=== PATIENT | female | born 1940 | race Caucasian/White ===

== ENCOUNTER 2018-09-21 07:59 | Day surgery (SDC) | payer MEDICARE, OTHER ==
[~2018-09-21 07:59] MED LIST: Lactated Ringers 1,000 ML IV SCH; Lidocaine 1% 2 ML ONE; Lidocaine 1%/Sod Bicarbonate in NS 8.4% 1 ML Syringe IDERM PRN; Midazolam 1 MG/ML 2 ML SDV ONE; Propofol 200 MG/20 ML SDV ONE; Rocuronium 50 MG/5 ML Vial ONE; Sodium Chloride 0.9% 10 ML Syringe FLUSH PRN; fentaNYL 100 MCG/2 ML SDV ONE
[2018-09-21] MEDS ORDERED: Lidocaine 1% with EPINEPHrine 1:100,000 20 ML MDV ONE (08:05)
[2018-09-21] MEDS ORDERED: Sodium Chloride 0.9% 50 ML SDV ONE (08:05)
--- NOTE | 2018-09-21 09:47 | PCM.PREANE ---
Preanesthetic Assessment - Procedure Proposed Procedure: anterior and posterior vaginal repair with perineoplasty - Anesthesia/Transfusion/Family Hx Anesthesia History: Prior Anesthesia Without Reaction Family History of Anesthesia Reaction: No Transfusion History: No Prior Transfusion(s) - Review of Systems General: No Symptoms Pulmonary: No Symptoms Cardiovascular: No Symptoms Gastrointestinal: Abdominal Pain (related to surgery as why we are here) Neurological: No Symptoms Other: Reports: Neck Pain (broke neck in 2003-had to get screws in neck ) - Physical Assessment NPO Status Date: 09/20/18 NPO Status Time: 21:00 O2 Sat by Pulse Oximetry: 95 Respiratory Rate: 16 Vital Signs: Last Vital Signs Temp 98.6 F 09/21/18 08:10 Pulse 66 09/21/18 09:36 Resp 16 09/21/18 09:36 BP 155/84 H 09/21/18 09:36 Pulse Ox 95 09/21/18 09:36 Height: 5 ft 6 in Weight: 80.739 kg ASA Class: 2 Mental Status: Alert & Oriented x3 Airway Class: Mallampati = 1 Dentition: Reports: Dentures (top ), Partial (partial) Thyro-Mental Finger Breadths: 3 Mouth Opening Finger Breadths: 3 ROM/Head Extension: Limited/Partial (due to screws in neck from fracture repair) Lungs: Clear to Auscultation, Normal Respiratory Effort Cardiovascular: Regular Rate, Regular Rhythm - Allergies Allergies/Adverse Reactions: Allergies Allergy/AdvReac Type Severity Reaction Status Date / Time Penicillins Allergy Swelling Verified 09/21/18 09:48 - Blood Blood Available: No - Acknowledgements Anesthesia Type Planned: General Anesthesia Pt an Appropriate Candidate for the Planned Anesthesia: Yes Alternatives and Risks of Anesthesia Discussed w Pt/Guardian: Yes Pt/Guardian Understands and Agrees with Anesthesia Plan: Yes PreAnesthesia Questionnaire HEENT History: Reports: Allergic Rhinitis, Impaired Vision, Macular Degeneration , Other (See Below) Other HEENT History: wears glasses, has dentures, nasal congestion Cardiovascular History: Reports: None Respiratory History: Reports: Other (See Below) Other Respiratory History: cough, URI Gastrointestinal History: Reports: GERD Genitourinary History: Reports: None MICROFILM PROCESSOR History: Reports: Other (See Below) Other OB/BYN History: UTI, cystocele, incontinence, suprapubic pain, vaginal prolpase Musculoskeletal History: Reports: Other (See Below) Other Musculoskeletal History: left leg pain, left ankle pain, neck pain, left ankle arthritis- shoulder arthritis Endocrine/Metabolic History: Reports: None Hematologic History: Reports: None Immunologic History: Reports: None Oncologic (Cancer) History: Reports: None Dermatologic History: Reports: Other (See Below) Other Dermatologic History: actinic keratosis, skin cancer, onchomycosis, tinea corposis - Past Surgical History HEENT Surgical History: Reports: Cataract Surgery, Tonsillectomy Cardiovascular Surgical History: Reports: None Respiratory Surgical History: Reports: None GI Surgical History: Reports: Colonoscopy, EGD Female Surgical History: Reports: None Male Surgical History: Reports: None Endocrine Surgical History: Reports: None Neurological Surgical History: Reports: C-Spine, Other (See Below) (foot surgery screws) Other Neurological Surgeries/Procedures: c-spine fracture with repair and hardware Musculoskeletal Surgical History: Reports: Knee Replacement, Other (See Below) Other Musculoskeletal Surgeries/Procedures:: neck surgery, ORIF radial neck Oncologic Surgical History: Reports: None - SUBSTANCE USE Smoking Status *Q: Never Smoker Tobacco Use Within Last Twelve Months: No Second Hand Smoke Exposure: No Days Per Week of Alcohol Use: 1 (rare) Recreational Drug Use History: No - HOME MEDS Home Medications: Home Meds Cholecalciferol (Vitamin D3) [Vitamin D3] 1,000 unit PO DAILY 09/20/18 [History] Multivitamin [Daily Multiple Vitamin] 1 tab PO DAILY 09/20/18 [History] Omeprazole 40 mg PO BID 09/20/18 [History] Vit A/Vit C/Vit E/Zinc/Copper [Preservision Areds Softgel] 2 tab PO DAILY [History] - CURRENT (IN HOUSE) MEDS Current Meds: Current Medications Lactated Ringer's (Ringers, Lactated) 1,000 mls @ 125 mls/hr IV ASDIRECTED EVANGELINA Stop: 09/21/18 23:00 Last Admin: 09/21/18 08:25 Dose: 125 mls/hr Lidocaine/Sodium Bicarbonate (Buffered Lidocaine 1% In Ns 8.4%) 0.25 ml IDERM ONETIME PRN PRN Reason: Prior to IV Start Stop: 09/21/18 18:00 Last Admin: 09/21/18 08:25 Dose: 0.25 ml Sodium Chloride (Saline Flush) 10 ml FLUSH ASDIRECTED PRN PRN Reason: Keep Vein Open Stop: 09/21/18 18:00 Discontinued Medications Fentanyl (Sublimaze) Confirm Administered Dose 100 mcg .ROUTE .STK-MED ONE Stop: 09/21/18 07:25 Lidocaine HCl (Xylocaine-Mpf 1%) Confirm Administered Dose 2 mls @ as directed .ROUTE .STK-MED ONE Stop: 09/21/18 07:22 Lidocaine HCl (Xylocaine-Mpf 1%) Confirm Administered Dose 2 mls @ as directed .ROUTE .STK-MED ONE Stop: 09/21/18 07:22 Lidocaine/Epinephrine (Xylocaine 1% With Epinephrine 1:100,000) Confirm Administered Dose 20 ml .ROUTE .STK-MED ONE Stop: 09/21/18 08:06 Midazolam HCl (Versed 1 Mg/Ml) Confirm Administered Dose 2 mg .ROUTE .STK-MED ONE Stop: 09/21/18 07:24 Propofol (Diprivan 20 Ml) Confirm Administered Dose 200 mg .ROUTE .STK-MED ONE Stop: 09/21/18 07:22 Rocuronium Husser (Zemuron) Confirm Administered Dose 50 mg .ROUTE .STK-MED ONE Stop: 09/21/18 07:26 Sodium Chloride (Normal Saline) Confirm Administered Dose 50 ml .ROUTE .STK-MED ONE Stop: 09/21/18 08:06
[2018-09-21] MEDS ORDERED: Propofol 200 MG/20 ML SDV ONE (12:01)
[2018-09-21] MEDS ORDERED: Ondansetron 4 MG/2 ML SDV ONE (12:21)
[2018-09-21] MEDS ORDERED: Ketorolac 30 MG/ML SDV ONE (12:22)
[2018-09-21] MEDS ORDERED: Acetaminophen/oxyCODONE 325-5 MG Tab PO PRN (12:37)
[2018-09-21] MEDS ORDERED: Ondansetron 4 MG/2 ML SDV IVPUSH PRN (12:37)
--- NOTE | 2018-09-21 12:41 | PCM48HPAN ---
Post Anesthesia Note - EVALUATION WITHIN 48HRS OF ANESTHETIC Vital Signs in Normal Range: Yes Patient Participated in Evaluation: Yes Respiratory Function Stable: Yes Airway Patent: Yes Cardiovascular Function Stable: Yes Hydration Status Stable: Yes Pain Control Satisfactory: Yes Nausea and Vomiting Control Satisfactory: Yes Mental Status Recovered: Yes Pulse Rate: 65 SaO2: 96 Resp Rate: 16 Blood Pressure: 122/79
--- NOTE | 2018-09-21 12:43 | PCM.OPNOTE ---
- General Post-Op/Procedure Note Date of Surgery/Procedure: 09/21/18 Operative Procedure(s): Anterior and posterior vaginal repair with perineoplasty Findings: Patient had a grade 1 uterine descensus, grade 3 cystocele and a grade 4 rectocele. Patient also had a gaping introitus allowing 4 fingerbreadths evaluation and had atrophic-appearing vulvar epithelium. Uterus is small. No adnexal abnormalities were noted on bimanual exam. Pre Op Diagnosis: 1. Grade 4 rectocele. 2. Grade 3 cystocele. 3. Atrophic vulvar and vaginal epithelium. 4. Grade 1 uterine descensus Post-Op Diagnosis: Same Anesthesia Technique: MAC Other Anesthesia Type: Lidocaine quarter percent with [id number] mL total Primary Surgeon: Marcus Suazo Secondary Surgeon: Andre Dominguez Anesthesia Provider: Elizabeth Mcbride Marketing Communications Manager: Cherise Waggoner Reason Marketing Communications Manager Was Necessary: Retraction, assistance, patient safety, quality of care. Fluid Replacement, Intraop: 800 EBL in mLs: 25 Complications: None Condition: Good Free Text/Narrative:: Surgery duration: 43 minutes Procedure: The patient is taken to the operating room and placed in a supine position on the operating table. She received 2 g of Ancef preoperatively for infection prophylaxis. She had sequential compression stockings in place for DVT prophylaxis. Patient was administered MAC. She was placed in a dorsal lithotomy position and prepped and draped in the usual fashion. Anterior vaginal repair was performed. Patient had emptied her bladder production assistant to the OR. Weighted speculum was placed in the vagina and the uppermost portion of the cystocele was identified. Two Allis clamps was placed at that uppermost point at a position approximately 1-1/2 cm lateral to the midline A second Allis clamp was placed approximately 2 cm from the urethral meatus. The areas and infiltrated with lidocaine quarter percent with epinephrine. Approximately 8 mL was used. The 2 lateral Allis clamps were retracted and an epithelial incision was made between the 2 clamps. A midline incision was then made with a Metzenbaum scissors. The overlying epithelium was then dissected off of the underlying vesicovaginal fascia. This all to lateral which when approximately midline was felt to be adequate to reduce the cystocele. When this was done approximately 4 trapezoidal shaped sutures of 0 Monocryl were then placed reapproximating the lateral supportive tissue midline and reducing the rectocele. At this point the excess epithelium bilaterally was removed and the epithelium was closed in a running fashion with 3-0 Monocryl. Rectocele was then performed. The uppermost portion of the rectocele was identified and was grasped midline with an Allis clamp. The introital area was grasped at approximately the 4:00 and 8:00 positions at the junction of the vaginal and vulvar epithelium. The area of epithelium was then infiltrated with lidocaine quarter percent with epinephrine. A johnathan-shaped piece of epithelium was removed from the posterior introital and perineal area. The vaginal epithelium was then undermined superiorly to the top of the rectocele. Was then incised midline. With sharp and blunt dissection the epithelium was then dissected off of the underlying vesicovaginal fascia. At this point approximately 8 sutures of 0 Monocryl were placed to reapproximate the lateral supportive tissue midline and reduce the rectocele. The excess epithelium was then excised and the epithelium overlying the rectocele repair was then reapproximated with a running suture of 3-0 Monocryl. Perineoplasty was then performed with approximately 4 V-shaped stitches of 0 Monocryl in placed to reapproximate the lateral tissue midline, rebuild the perineum about 1 cm and the vagina approximately 1 cm. The epithelium of the introitus and perineal body was then reapproximated using 3-0 Monocryl in an episiotomy repair fashion. At this time sponge, instrument and needle counts were correct. The patient was returned to supine position and was discharged from the operating room in good condition.
[2018-09-21] MEDS ORDERED: Ketorolac 30 MG/ML SDV IVPUSH SCH (12:45)
[2018-09-21] MEDS ORDERED: Ibuprofen 600 MG Tab PO PRN (18:30)
== END 2018-09-21 14:02 | disposition home or self-care (01) ==
LOC: JD.SDS 07:59
PROVIDERS: ATTEND Obstetrics & Gynecology
DX: N81.6 Rectocele (principal); N81.2 Incomplete uterovaginal prolapse; N90.5 Atrophy of vulva; N95.2 Postmenopausal atrophic vaginitis; I25.2 Old myocardial infarction; K21.9 Gastro-esophageal reflux disease without esophagitis; E87.6 Hypokalemia; M19.90 Unspecified osteoarthritis, unspecified site; Z88.0 Allergy status to penicillin; Z79.899 Other long term (current) drug therapy; Z98.890 Other specified postprocedural states
CPT/HCPCS: 56810; J1885; J2001; J2250; J2405; J2704; J3010; J7120; 00942

== ENCOUNTER 2021-10-04 11:31 | Inpatient (IN) | payer MEDICARE, OTHER ==
[2021-10-04] MEDS ORDERED: Sodium Chloride 0.9% 10 ML Syringe FLUSH PRN (14:32)
[2021-10-04] MEDS ORDERED: Sodium Chloride 0.9% 1,000 ML IV SCH (14:45)
[2021-10-04 15:54] LABS: ESTIMATED GFR 87 mL/min (>60)
[2021-10-04] MEDS ORDERED: Potassium Chloride 20 MEQ Tab.ER PO ONE (16:19)
[2021-10-04] MEDS ORDERED: Lactated Ringers 1,000 ML IV SCH (16:30)
[2021-10-04] MEDS: Potassium Chloride 10 MEQ in Premix Bag 1 BAG IV SCH ×4 (16:36→20:40)
[2021-10-04] MEDS ORDERED: Levofloxacin/Dextrose 5%-Water 500 MG in Premix Bag 1 BAG IV SCH (17:00)
[2021-10-04 17:45] LABS: CORONAVIRUS COVID-19 NAA NEGATIVE (NEGATIVE)
[2021-10-04] MEDS: Sodium Chloride 0.9% 1,000 ML IV SCH (19:06)
[2021-10-04] MEDS: Pantoprazole 40 MG Vial ONE (19:08)
[2021-10-04] MEDS ORDERED: Levofloxacin/Dextrose 5%-Water 100 ML IV ONE (19:18)
[2021-10-04] MEDS: Levofloxacin/Dextrose 5%-Water 500 MG in Premix Bag 1 BAG IV SCH (19:47)
[2021-10-04] MEDS: LORazepam 0.5 MG Tab PO SCH (20:38)
[2021-10-04] MEDS ORDERED: Haloperidol Lactate 5 MG/ML SDV IVPUSH ONE (22:35)
[2021-10-05] MEDS: Sodium Chloride 0.9% 1,000 ML IV SCH ×4 (03:57→22:11)
[2021-10-05 06:27] LABS: ESTIMATED GFR 91 mL/min (>60)
[2021-10-05] MEDS: LORazepam 0.5 MG Tab PO SCH ×3 (09:15→22:07)
[2021-10-05] MEDS ORDERED: Potassium Chloride 20 MEQ Tab.ER PO ONE (10:18)
[2021-10-05] MEDS: Potassium Chloride 10 MEQ in Premix Bag 1 BAG IV SCH ×4 (10:37→14:16)
[2021-10-05] MEDS ORDERED: Potassium Chloride 10 MEQ in Premix Bag 1 BAG IV SCH (13:15)
[2021-10-05] MEDS: risperiDONE 0.5 MG Tab PO SCH (20:09)
[2021-10-05] MEDS: Levofloxacin/Dextrose 5%-Water 500 MG in Premix Bag 1 BAG IV SCH (20:14)
[2021-10-05] MEDS ORDERED: Non-Formulary Medication 1 Each PO SCH (21:00)
[2021-10-05] MEDS ORDERED: FERROUS SULFATE 325 MG PO SCH (21:00)
[2021-10-05] MEDS: VITAMIN D3 2000 UNIT PO SCH (22:07)
[2021-10-05] MEDS: AREDS FORMULA PO SCH (22:08)
[2021-10-06 05:58] LABS: ESTIMATED GFR 91 mL/min (>60)
[2021-10-06] MEDS ORDERED: Non-Formulary Medication 1 Each PO SCH (09:00)
[2021-10-06] MEDS: LORazepam 0.5 MG Tab PO SCH (09:09)
[2021-10-06] MEDS: risperiDONE 0.5 MG Tab PO SCH ×2 (09:09→20:07)
[2021-10-06] MEDS: Potassium Chloride 20 MEQ Tab.ER PO SCH ×3 (11:40→20:11)
[2021-10-06] MEDS ORDERED: Sodium Chloride 0.9% 250 ML IV SCH (14:45)
[2021-10-06] MEDS: LORazepam 0.5 MG Tab PO PRN ×2 (14:52→20:14)
[2021-10-06] MEDS: Donepezil 10 MG Tab PO SCH (20:10)
[2021-10-06] MEDS: AREDS FORMULA PO SCH (20:17)
[2021-10-06] MEDS: VITAMIN D3 2000 UNIT PO SCH (20:18)
[2021-10-06] MEDS: Sodium Chloride 0.9% 1,000 ML IV SCH (20:27)
[2021-10-06] MEDS: Levofloxacin/Dextrose 5%-Water 500 MG in Premix Bag 1 BAG IV SCH (20:34)
[2021-10-06] MEDS ORDERED: risperiDONE 0.5 MG Tab PO ONE (23:49)
[2021-10-07 07:27] LABS: ESTIMATED GFR 95 mL/min (>60)
[2021-10-07] MEDS: Sulfamethoxazole/Trimethoprim 800-160 MG Tab PO SCH ×2 (09:30→20:48)
[2021-10-07] MEDS: LORazepam 0.5 MG Tab PO PRN (09:31)
[2021-10-07] MEDS: Potassium Chloride 20 MEQ Tab.ER PO SCH ×3 (09:31→20:48)
[2021-10-07] MEDS ORDERED: Aluminum Hydroxide/Magnesium Hydroxide/Simethicone Susp 30 ML Cup PO PRN (10:30)
[2021-10-07] MEDS: Pantoprazole 40 MG Tab.CR PO SCH (16:24)
[2021-10-07] MEDS: risperiDONE 0.5 MG Tab PO SCH (20:48)
[2021-10-07] MEDS: Donepezil 10 MG Tab PO SCH (20:48)
[2021-10-07] MEDS: VITAMIN D3 2000 UNIT PO SCH (20:48)
[2021-10-07] MEDS: AREDS FORMULA PO SCH (20:48)
[2021-10-08] MEDS: Sulfamethoxazole/Trimethoprim 800-160 MG Tab PO SCH (08:18)
[2021-10-08] MEDS: Potassium Chloride 20 MEQ Tab.ER PO SCH (08:18)
[2021-10-08] MEDS: Pantoprazole 40 MG Tab.CR PO SCH (08:18)
== END 2021-10-08 11:53 | DRG 690 ==
LOC: JD.ED 11:31 → JD.ICU 16:38
PROVIDERS: ADMIT Pediatrics; ATTEND Internal Medicine
PROC: 30233N1 Transfusion of Nonautologous Red Blood Cells into Peripheral Vein, Percutaneous Approach (ICD-10-PCS; principal; 2021-10-06)
DX: N30.01 Acute cystitis with hematuria (principal); F03.91 Unspecified dementia, unspecified severity, with behavioral disturbance; R32 Unspecified urinary incontinence; M19.90 Unspecified osteoarthritis, unspecified site; Z85.828 Personal history of other malignant neoplasm of skin; Z88.0 Allergy status to penicillin; E87.6 Hypokalemia; K21.9 Gastro-esophageal reflux disease without esophagitis; Z20.822 Contact with and (suspected) exposure to COVID-19; D50.9 Iron deficiency anemia, unspecified; Z66 Do not resuscitate; R62.7 Adult failure to thrive; S00.83XA Contusion of other part of head, initial encounter; Z79.899 Other long term (current) drug therapy; Z79.52 Long term (current) use of systemic steroids; Z68.25 Body mass index [BMI] 25.0-25.9, adult; Z97.3 Presence of spectacles and contact lenses; Z97.2 Presence of dental prosthetic device (complete) (partial); Z87.440 Personal history of urinary (tract) infections; Z90.89 Acquired absence of other organs; Z98.42 Cataract extraction status, left eye; Z98.41 Cataract extraction status, right eye; Z98.890 Other specified postprocedural states; Z91.81 History of falling; W18.30XA Fall on same level, unspecified, initial encounter; Y92.89 Other specified places as the place of occurrence of the external cause
CPT/HCPCS: 0241U; 36415; 36430; 70450; 71045; 74177; 80048; 80053; 81001; 82607; 82746; 83540; 83605; 83690; 83735; 84443; 84484; 85025; 85027; 86140; 86850; 86900; 86901; 86922; 87040; 87086; 87088; 87186; 93005; 97116; 97162; 97530; 93010; 99284; A9270-GY; C9113; J1630; J1956; J2916; J3480; J3490; J7030; J7120; P9016; U0002

== ENCOUNTER 2024-03-29 17:55 | Inpatient (IN) | payer MEDICARE, OTHER ==
[2024-03-29] MEDS: Iopamidol 612 MG/ML 100 ML Bottle IVPUSH ONE (18:45)
[2024-03-29 18:57] LABS: BASOPHILS PERCENT AUTO 0.5 % (0.0-1.0); EOSINOPHILS ABSOLUTE AUTO 0.1 K/mm3 (0.0-0.4); HEMATOCRIT 40.2 % (37.0-47.0); HEMOGLOBIN 13.3 gm/dl (12.0-16.0); IMMATURE GRAN ABSOLUTE AUTO 0.04 K/mm3 (0.00-0.05); IMMATURE GRAN PERCENT AUTO 0.5 % (0.0-0.4); LYMPHOCYTES ABSOLUTE AUTO 1.2 K/mm3 (1.0-4.8); LYMPHOCYTES PERCENT AUTO 13.2 % (24.0-44.0); MEAN CORPUSCULAR HEMOGLOBIN 33.1 pg (28.0-32.0); MEAN CORPUSCULAR HGB CONC 33.1 g/dl (32.0-36.0); MEAN PLATELET VOLUME 9.3 fl (9.4-12.3); MONOCYTES ABSOLUTE AUTO 0.6 K/mm3 (0.0-0.8); MONOCYTES PERCENT AUTO 7.3 % (0.0-8.0); NEUTROPHILS ABSOLUTE AUTO 6.8 K/mm3 (1.8-7.7); NEUTROPHILS PERCENT AUTO 77.5 % (41.0-71.0); PLATELET COUNT,PLT 217 K/mm3 (150-400); RED BLOOD CELL COUNT 4.02 M/mm3 (4.10-5.30); WHITE BLOOD CELL COUNT,WBC 8.79 K/mm3 (3.9-11.3)
[2024-03-29 19:23] LABS: ALBUMIN 3.2 g/dl (3.4-5.0); ANION GAP 12.9 (5-15); BILIRUBIN TOTAL 1.2 mg/dL (0.2-1.0); BUN/CREATININE RATIO 18.8 (14-18); CALCIUM 8.4 mg/dL (8.5-10.1); CREATININE 0.8 mg/dL (0.55-1.02); EST CRCL DRUG DOSING (CG) 46.82 mL/min; MAGNESIUM 1.9 mg/dL (1.8-2.4); POTASSIUM,K 3.9 mEq/L (3.5-5.1); PROTEIN TOTAL,TP 6.4 g/dl (6.4-8.2)
[2024-03-29] MEDS: Lidocaine 1% 10 ML MDV INJECT ONE (20:13)
[2024-03-29] MEDS: fentaNYL 100 MCG/2 ML SDV IVPUSH ONE (20:13)
[2024-03-29] MEDS ORDERED: Acetaminophen/HYDROcodone 325-5 MG Tab PO PRN (20:22)
[2024-03-29] MEDS ORDERED: fentaNYL 100 MCG/2 ML SDV IVPUSH PRN (20:26)
[2024-03-30] MEDS: Acetaminophen 325 MG Tab PO SCH ×2 (00:44→09:41)
[2024-03-30] MEDS ORDERED: Morphine 2 MG/ML SYRINGE IVPUSH PRN (07:28)
[2024-03-30] MEDS: Enoxaparin 40 MG/0.4 ML Syringe SUBCUT SCH (17:03)
[2024-03-30] MEDS ORDERED: Ondansetron 4 MG Tab.DIS PO PRN (18:17)
[2024-03-30] MEDS: risperiDONE 0.5 MG Tab PO SCH (22:18)
[2024-03-31] MEDS: Polyethylene Glycol 3350 Powder 17 GM Packet PO SCH (10:01)
[2024-03-31] MEDS: Cholecalciferol (Vitamin D3) 25 MCG Tab PO SCH (10:05)
[2024-03-31] MEDS: oxyCODONE 5 MG Tab PO PRN (13:00)
[2024-03-31 13:24] LABS: APPEARANCE,URINE TURBID (Clear); BILIRUBIN,URINE NEGATIVE (Negative); COLOR,URINE YELLOW (Yellow); GLUCOSE,URINE NEGATIVE (Negative); KETONES,URINE NEGATIVE (Negative); LEUKOCYTE ESTERASE,URINE 1+ (Negative); NITRITE,URINE NEGATIVE (Negative); OCCULT BLOOD,URINE 1+ (Negative); PROTEIN,URINE 1+ (Negative); UROBILINOGEN,URINE 0.2 (0.2-1.0)
[2024-03-31] MEDS: Nitrofurantoin Monohydrate/Macrocrystalline 100 MG Cap PO ONE (14:17)
[2024-03-31 19:28] LABS: BACTERIA,URINE MANY /hpf (FEW); MUCUS,URINE FEW /hpf (FEW); RBC,URINE 0-5 /hpf (0-5); SQUAMOUS EPITHELIAL CELLS,UR 0-5 /hpf (0-5); WBC,URINE 20-30 /hpf (0-5)
[2024-03-31] MEDS ORDERED: Donepezil 10 MG Tab PO SCH (21:00)
[2024-04-01] MEDS ORDERED: Pantoprazole 40 MG Tab.CR PO SCH (09:00)
== END 2024-03-31 15:32 | DRG 536 ==
LOC: JD.ED 17:55 → JD.MS 20:16
PROVIDERS: ADMIT Family Medicine; ATTEND Family Medicine
DX: S72.002A Fracture of unspecified part of neck of left femur, initial encounter for closed fracture (principal); F03.94 Unspecified dementia, unspecified severity, with anxiety; F03.918 Unspecified dementia, unspecified severity, with other behavioral disturbance; N39.0 Urinary tract infection, site not specified; W20.8XXA Other cause of strike by thrown, projected or falling object, initial encounter; H54.7 Unspecified visual loss; K21.9 Gastro-esophageal reflux disease without esophagitis; M19.072 Primary osteoarthritis, left ankle and foot; M19.019 Primary osteoarthritis, unspecified shoulder; Z96.659 Presence of unspecified artificial knee joint; Z66 Do not resuscitate; M81.0 Age-related osteoporosis without current pathological fracture; Z85.828 Personal history of other malignant neoplasm of skin; Y93.89 Activity, other specified; Y92.89 Other specified places as the place of occurrence of the external cause; Z79.899 Other long term (current) drug therapy; Z98.890 Other specified postprocedural states; Z98.49 Cataract extraction status, unspecified eye; Z90.89 Acquired absence of other organs
CPT/HCPCS: 36415; 70450; 71260; 72125; 74177; 80053; 83735; 85025; J3010; Q9967; 51701; 81001; 87086; 87641; 99222; 99239; A9270-GY; C1758; J3490

== ENCOUNTER 2024-10-28 13:06 | Inpatient (IN) | payer MEDICARE, OTHER ==
[2024-10-28] MEDS ORDERED: Sodium Chloride 0.9% 10 ML Syringe FLUSH PRN (13:12)
[2024-10-28 13:36] LABS: PCO2 ARTERIAL 31.0 mmHg (35.0-45.0); PO2 ARTERIAL 62.0 mmHg (80.0-100.0)
[2024-10-28 13:36] LABS: MEAN PLATELET VOLUME 10.4 fl (9.4-12.3); NRBC ABSOLUTE 0.73 (0.00-0.02); NRBC PERCENT 3.6 % (0.0-0.2); PLATELET COUNT,PLT 287 K/mm3 (150-400); RED BLOOD CELL COUNT 2.74 M/mm3 (4.10-5.30); WHITE BLOOD CELL COUNT,WBC 20.36 K/mm3 (3.9-11.3)
[2024-10-28 13:37] LABS: BASE EXCESS ARTERIAL 1.3 (-2-2.0); BICARBONATE,ARTERIAL 24.2 meq/L (22.0-26.0); O2 SATURATION ARTERIAL 95.7 % (96.0-97.0)
[2024-10-28 13:56] LABS: INR 1.11
[2024-10-28 13:57] LABS: PTT,PARTIAL THROMBOPLSTIN TIME < 20.0 SECONDS (21.7-31.4)
[2024-10-28 13:59] LABS: A/G RATIO 0.9 (1-2); ALANINE AMINOTRANSFERASE,ALT 46.0 U/L (14-59); ASPARTATE AMNIOTRANSFERASE,AST 18.0 U/L (15-37); BILIRUBIN TOTAL 0.5 mg/dL (0.2-1.0); BLOOD UREA NITROGEN,BUN 85.0 mg/dL (7-18); CARBON DIOXIDE,CO2 26.0 mEq/L (21-32); CHLORIDE,CL 126.0 mEq/L (98-107); CREATINE KINASE,CK 22.0 U/L (26-192); CREATININE 1.2 mg/dL (0.55-1.02); EST CRCL DRUG DOSING (CG) 30.67 mL/min; ESTIMATED GFR 45.0 mL/min (>60); GLUCOSE RANDOM 250.0 mg/dL (70-99); POTASSIUM,K 3.8 mEq/L (3.5-5.1); PROTEIN TOTAL,TP 5.8 g/dl (6.4-8.2)
[2024-10-28 14:14] LABS: LACTIC ACID 3.7 mmol/L (0.4-2.0); SODIUM,NA 164.0 mEq/L (136-145)
[2024-10-28 14:15] LABS: TROPONIN I HIGH SENSITIVITY 59.0 pg/mL (<=51)
[2024-10-28 14:22] LABS: APPEARANCE,URINE CLEAR (Clear); GLUCOSE,URINE NEGATIVE (Negative); OCCULT BLOOD,URINE NEGATIVE (Negative)
[2024-10-28] MEDS: metroNIDAZOLE/Normal Saline 500 MG in Premix Bag 1 BAG IV ONE (14:25)
[2024-10-28 14:31] LABS: SQUAMOUS EPITHELIAL CELLS,UR 0-5 /hpf (0-5)
[2024-10-28 14:43] LABS: BAND PERCENT MAN 0 % (0-10); BASOPHILS PERCENT MAN 0 (0.1-1.2); EOSINOPHILS PERCENT MAN 0 % (0.7-5.8); LYMPHOCYTES PERCENT MAN 12 % (20-40); MONOCYTES PERCENT MAN 6 % (2-10)
[2024-10-28 15:16] LABS: PLATELET COUNT ESTIMATE ADEQUATE
[2024-10-28] MEDS ORDERED: LORazepam 2 MG/ML SDV IV PRN (16:37)
[2024-10-28] MEDS ORDERED: Sennosides/Docusate Sodium 50-8.6 MG Tab PO PRN (16:37)
[2024-10-28] MEDS ORDERED: 50% Dextrose in Water 50 ML Syringe IVPUSH PRN (16:53)
[2024-10-28] MEDS ORDERED: Magnesium Hydroxide 400 MG/5 ML Susp 30 ML Cup PO PRN (16:53)
[2024-10-28] MEDS ORDERED: Carboxymethylcellulose Sodium 1% Ophth Gel 15 ML Bottle EYEBOTH PRN (16:53)
[2024-10-28] MEDS: VANCOmycin 1.5 GM/300 ML 1.5 GM in Premix Bag 1 BAG IV ONE (17:14)
[2024-10-28] MEDS: Insulin Lispro 100 Unit/ML 3 ML KwikPen SUBCUT SCH (17:38)
[2024-10-28 17:51] LABS: BASOPHILS ABSOLUTE AUTO 0.1 K/mm3 (0.0-0.2); BASOPHILS PERCENT AUTO 0.3 % (0.0-1.0); EOSINOPHILS ABSOLUTE AUTO 0.0 K/mm3 (0.0-0.4); EOSINOPHILS PERCENT AUTO 0.0 % (0.0-6.0); IMMATURE GRAN ABSOLUTE AUTO 0.24 K/mm3 (0.00-0.05); IMMATURE GRAN PERCENT AUTO 1.2 % (0.0-0.4); LYMPHOCYTES ABSOLUTE AUTO 3.4 K/mm3 (1.0-4.8); LYMPHOCYTES PERCENT AUTO 17.2 % (24.0-44.0); MEAN PLATELET VOLUME 10.3 fl (9.4-12.3); MONOCYTES ABSOLUTE AUTO 1.5 K/mm3 (0.0-0.8); MONOCYTES PERCENT AUTO 7.6 % (0.0-8.0); NEUTROPHILS ABSOLUTE AUTO 14.6 K/mm3 (1.8-7.7); NEUTROPHILS PERCENT AUTO 73.7 % (41.0-71.0); NRBC ABSOLUTE 0.53 (0.00-0.02); NRBC PERCENT 2.7 % (0.0-0.2); PLATELET COUNT,PLT 250 K/mm3 (150-400); RED BLOOD CELL COUNT 2.42 M/mm3 (4.10-5.30); WHITE BLOOD CELL COUNT,WBC 19.75 K/mm3 (3.9-11.3)
[2024-10-28 18:18] LABS: A/G RATIO 0.9 (1-2); ALANINE AMINOTRANSFERASE,ALT 37.0 U/L (14-59); ASPARTATE AMNIOTRANSFERASE,AST 17.0 U/L (15-37); BILIRUBIN TOTAL 0.3 mg/dL (0.2-1.0); BLOOD UREA NITROGEN,BUN 72.0 mg/dL (7-18); CARBON DIOXIDE,CO2 25.0 mEq/L (21-32); CHLORIDE,CL 130.0 mEq/L (98-107); CREATININE 1.0 mg/dL (0.55-1.02); EST CRCL DRUG DOSING (CG) 36.81 mL/min; ESTIMATED GFR 56.0 mL/min (>60); GLUCOSE RANDOM 182.0 mg/dL (70-99); PHOSPHORUS 3.9 mg/dL (2.6-4.7); POTASSIUM,K 3.6 mEq/L (3.5-5.1); PROTEIN TOTAL,TP 5.1 g/dl (6.4-8.2)
[2024-10-28 18:31] LABS: SODIUM,NA 165.0 mEq/L (136-145); TROPONIN I HIGH SENSITIVITY 56.0 pg/mL (<=51)
[2024-10-28 18:40] LABS: CREATININE,URINE RAND 101.2 mg/dL (30.0-125.0)
[2024-10-28 19:10] LABS: FOLIC ACID 24.8 ng/mL (8.6-58.9)
[2024-10-28 19:11] LABS: OSMOLALITY,URINE 741.0 mosm/kg (400-1100)
[2024-10-28] MEDS: Remove Patch LIDOCAINE TRDERM SCH (20:22)
[2024-10-29 01:56] LABS: BLOOD UREA NITROGEN,BUN 56.0 mg/dL (7-18); CARBON DIOXIDE,CO2 25.0 mEq/L (21-32); CHLORIDE,CL 128.0 mEq/L (98-107); CREATININE 1.0 mg/dL (0.55-1.02); EST CRCL DRUG DOSING (CG) 36.81 mL/min; ESTIMATED GFR 56.0 mL/min (>60); GLUCOSE RANDOM 230.0 mg/dL (70-99); POTASSIUM,K 3.2 mEq/L (3.5-5.1)
[2024-10-29 02:08] LABS: SODIUM,NA 162.0 mEq/L (136-145)
[2024-10-29 05:45] LABS: BASOPHILS ABSOLUTE AUTO 0.1 K/mm3 (0.0-0.2); BASOPHILS PERCENT AUTO 0.4 % (0.0-1.0); EOSINOPHILS ABSOLUTE AUTO 0.1 K/mm3 (0.0-0.4); EOSINOPHILS PERCENT AUTO 0.4 % (0.0-6.0); IMMATURE GRAN ABSOLUTE AUTO 0.28 K/mm3 (0.00-0.05); IMMATURE GRAN PERCENT AUTO 1.5 % (0.0-0.4); LYMPHOCYTES ABSOLUTE AUTO 2.3 K/mm3 (1.0-4.8); LYMPHOCYTES PERCENT AUTO 12.1 % (24.0-44.0); MEAN PLATELET VOLUME 10.3 fl (9.4-12.3); MONOCYTES ABSOLUTE AUTO 1.4 K/mm3 (0.0-0.8); MONOCYTES PERCENT AUTO 7.2 % (0.0-8.0); NEUTROPHILS ABSOLUTE AUTO 14.8 K/mm3 (1.8-7.7); NEUTROPHILS PERCENT AUTO 78.4 % (41.0-71.0); NRBC ABSOLUTE 0.48 (0.00-0.02); NRBC PERCENT 2.5 % (0.0-0.2); PLATELET COUNT,PLT 228 K/mm3 (150-400); RED BLOOD CELL COUNT 2.30 M/mm3 (4.10-5.30); WHITE BLOOD CELL COUNT,WBC 18.93 K/mm3 (3.9-11.3)
[2024-10-29 06:05] LABS: A/G RATIO 0.8 (1-2); ALANINE AMINOTRANSFERASE,ALT 33.0 U/L (14-59); ASPARTATE AMNIOTRANSFERASE,AST 11.0 U/L (15-37); BILIRUBIN TOTAL 0.5 mg/dL (0.2-1.0); BLOOD UREA NITROGEN,BUN 45.0 mg/dL (7-18); CARBON DIOXIDE,CO2 26.0 mEq/L (21-32); CHLORIDE,CL 124.0 mEq/L (98-107); CREATININE 0.9 mg/dL (0.55-1.02); EST CRCL DRUG DOSING (CG) 40.9 mL/min; ESTIMATED GFR 63.0 mL/min (>60); GLUCOSE RANDOM 230.0 mg/dL (70-99); PHOSPHORUS 3.2 mg/dL (2.6-4.7); POTASSIUM,K 3.1 mEq/L (3.5-5.1); PROTEIN TOTAL,TP 5.1 g/dl (6.4-8.2)
[2024-10-29 06:31] LABS: SODIUM,NA 161.0 mEq/L (136-145)
[2024-10-29] MEDS: Cholecalciferol (Vitamin D3) 25 MCG Tab PO SCH (07:34)
[2024-10-29] MEDS: Potassium Chloride 20 MEQ Tab.ER PO ONE ×2 (07:36→11:06)
[2024-10-29] MEDS ORDERED: Potassium Chloride 20 MEQ Tab.ER PO SCH (12:00)
[2024-10-29 12:43] LABS: BLOOD UREA NITROGEN,BUN 36.0 mg/dL (7-18); CARBON DIOXIDE,CO2 24.0 mEq/L (21-32); CHLORIDE,CL 124.0 mEq/L (98-107); CREATININE 1.0 mg/dL (0.55-1.02); EST CRCL DRUG DOSING (CG) 36.81 mL/min; ESTIMATED GFR 56.0 mL/min (>60); GLUCOSE RANDOM 255.0 mg/dL (70-99); POTASSIUM,K 2.9 mEq/L (3.5-5.1); SODIUM,NA 158.0 mEq/L (136-145)
[2024-10-29] MEDS: Lactated Ringers 1,000 ML IV SCH (13:42)
[2024-10-29 18:24] LABS: BLOOD UREA NITROGEN,BUN 30.0 mg/dL (7-18); CARBON DIOXIDE,CO2 25.0 mEq/L (21-32); CHLORIDE,CL 122.0 mEq/L (98-107); CREATININE 0.8 mg/dL (0.55-1.02); EST CRCL DRUG DOSING (CG) 46.01 mL/min; ESTIMATED GFR 73.0 mL/min (>60); GLUCOSE RANDOM 178.0 mg/dL (70-99); SODIUM,NA 155.0 mEq/L (136-145)
[2024-10-29 18:30] LABS: POTASSIUM,K 3.7 mEq/L (3.5-5.1)
[2024-10-30 05:43] LABS: BASOPHILS ABSOLUTE AUTO 0.1 K/mm3 (0.0-0.2); BASOPHILS PERCENT AUTO 0.4 % (0.0-1.0); EOSINOPHILS ABSOLUTE AUTO 0.5 K/mm3 (0.0-0.4); EOSINOPHILS PERCENT AUTO 3.9 % (0.0-6.0); IMMATURE GRAN ABSOLUTE AUTO 0.19 K/mm3 (0.00-0.05); IMMATURE GRAN PERCENT AUTO 1.5 % (0.0-0.4); LYMPHOCYTES ABSOLUTE AUTO 2.3 K/mm3 (1.0-4.8); LYMPHOCYTES PERCENT AUTO 17.4 % (24.0-44.0); MEAN PLATELET VOLUME 10.2 fl (9.4-12.3); MONOCYTES ABSOLUTE AUTO 0.8 K/mm3 (0.0-0.8); MONOCYTES PERCENT AUTO 6.2 % (0.0-8.0); NEUTROPHILS ABSOLUTE AUTO 9.2 K/mm3 (1.8-7.7); NEUTROPHILS PERCENT AUTO 70.6 % (41.0-71.0); NRBC ABSOLUTE 0.44 (0.00-0.02); NRBC PERCENT 3.4 % (0.0-0.2); PLATELET COUNT,PLT 167 K/mm3 (150-400); RED BLOOD CELL COUNT 1.69 M/mm3 (4.10-5.30); WHITE BLOOD CELL COUNT,WBC 13.03 K/mm3 (3.9-11.3)
[2024-10-30 05:50] LABS: BLOOD UREA NITROGEN,BUN 22.0 mg/dL (7-18); CARBON DIOXIDE,CO2 26.0 mEq/L (21-32); CHLORIDE,CL 117.0 mEq/L (98-107); CREATININE 0.7 mg/dL (0.55-1.02); EST CRCL DRUG DOSING (CG) 52.58 mL/min; ESTIMATED GFR 86.0 mL/min (>60); GLUCOSE RANDOM 159.0 mg/dL (70-99); PHOSPHORUS 2.3 mg/dL (2.6-4.7); POTASSIUM,K 3.2 mEq/L (3.5-5.1); SODIUM,NA 151.0 mEq/L (136-145)
[2024-10-30 06:25] LABS: MEAN PLATELET VOLUME 10.2 fl (9.4-12.3); NRBC ABSOLUTE 0.44 (0.00-0.02); NRBC PERCENT 3.5 % (0.0-0.2); PLATELET COUNT,PLT 174 K/mm3 (150-400); RED BLOOD CELL COUNT 1.70 M/mm3 (4.10-5.30); WHITE BLOOD CELL COUNT,WBC 12.50 K/mm3 (3.9-11.3)
[2024-10-30 06:49] LABS: BLOOD UREA NITROGEN,BUN 22.0 mg/dL (7-18); CARBON DIOXIDE,CO2 27.0 mEq/L (21-32); CHLORIDE,CL 118.0 mEq/L (98-107); CREATININE 0.7 mg/dL (0.55-1.02); EST CRCL DRUG DOSING (CG) 52.58 mL/min; ESTIMATED GFR 86.0 mL/min (>60); GLUCOSE RANDOM 154.0 mg/dL (70-99); POTASSIUM,K 3.1 mEq/L (3.5-5.1); SODIUM,NA 152.0 mEq/L (136-145)
[2024-10-30 07:28] LABS: RETICULOCYTE COUNT PERCENT 8.98 % (0.50-2.00)
[2024-10-30 07:40] LABS: IRON,FE 22 ug/dL (50-170); PERCENT FE SATURATION 12 % (20-55)
[2024-10-30] MEDS: Sodium Ferric Gluconate Cmplex 125 MG in Sodium Chloride 0.9% 100 ML IV SCH (08:42)
[2024-10-30] MEDS: Potassium Chloride 20 MEQ Tab.ER PO ONE (08:57)
[2024-10-30 09:08] LABS: INR 1.1
[2024-10-30 09:21] LABS: A/G RATIO 0.8 (1-2); ALANINE AMINOTRANSFERASE,ALT 35.0 U/L (14-59); ASPARTATE AMNIOTRANSFERASE,AST 25.0 U/L (15-37); BILIRUBIN DIRECT 0.1 mg/dl (0.0-0.2); BILIRUBIN INDIRECT 0.4; BILIRUBIN TOTAL 0.5 mg/dL (0.2-1.0); LACTATE DEHYDROGENASE,LDH 194.0 U/L (81-234); PROTEIN TOTAL,TP 4.3 g/dl (6.4-8.2)
[2024-10-30] MEDS: Potassium Phosphates 30 MMOLE in Sodium Chloride 0.9% 500 ML IV ONE (10:23)
[2024-10-30] MEDS: Furosemide 20 MG/2 ML VIAL IVPUSH ONE (10:23)
[2024-10-30 15:00] LABS: MEAN PLATELET VOLUME 10.3 fl (9.4-12.3); NRBC ABSOLUTE 0.59 (0.00-0.02); NRBC PERCENT 4.3 % (0.0-0.2); PLATELET COUNT,PLT 163 K/mm3 (150-400); RED BLOOD CELL COUNT 2.90 M/mm3 (4.10-5.30); WHITE BLOOD CELL COUNT,WBC 13.61 K/mm3 (3.9-11.3)
[2024-10-31 05:40] LABS: BASOPHILS ABSOLUTE AUTO 0.1 K/mm3 (0.0-0.2); BASOPHILS PERCENT AUTO 0.6 % (0.0-1.0); EOSINOPHILS ABSOLUTE AUTO 0.3 K/mm3 (0.0-0.4); EOSINOPHILS PERCENT AUTO 3.7 % (0.0-6.0); IMMATURE GRAN ABSOLUTE AUTO 0.11 K/mm3 (0.00-0.05); IMMATURE GRAN PERCENT AUTO 1.2 % (0.0-0.4); LYMPHOCYTES ABSOLUTE AUTO 1.8 K/mm3 (1.0-4.8); LYMPHOCYTES PERCENT AUTO 20.2 % (24.0-44.0); MEAN PLATELET VOLUME 10.0 fl (9.4-12.3); MONOCYTES ABSOLUTE AUTO 0.7 K/mm3 (0.0-0.8); MONOCYTES PERCENT AUTO 7.8 % (0.0-8.0); NEUTROPHILS ABSOLUTE AUTO 6.0 K/mm3 (1.8-7.7); NEUTROPHILS PERCENT AUTO 66.5 % (41.0-71.0); NRBC ABSOLUTE 0.27 (0.00-0.02); NRBC PERCENT 3.0 % (0.0-0.2); PLATELET COUNT,PLT 161 K/mm3 (150-400); RED BLOOD CELL COUNT 2.59 M/mm3 (4.10-5.30); WHITE BLOOD CELL COUNT,WBC 8.98 K/mm3 (3.9-11.3)
[2024-10-31 06:02] LABS: A/G RATIO 0.8 (1-2); ALANINE AMINOTRANSFERASE,ALT 29.0 U/L (14-59); ASPARTATE AMNIOTRANSFERASE,AST 19.0 U/L (15-37); BILIRUBIN TOTAL 1.0 mg/dL (0.2-1.0); BLOOD UREA NITROGEN,BUN 8.0 mg/dL (7-18); CARBON DIOXIDE,CO2 28.0 mEq/L (21-32); CHLORIDE,CL 109.0 mEq/L (98-107); CREATININE 0.7 mg/dL (0.55-1.02); EST CRCL DRUG DOSING (CG) 52.58 mL/min; ESTIMATED GFR 86.0 mL/min (>60); GLUCOSE RANDOM 147.0 mg/dL (70-99); PHOSPHORUS 3.1 mg/dL (2.6-4.7); POTASSIUM,K 2.7 mEq/L (3.5-5.1); PROTEIN TOTAL,TP 4.6 g/dl (6.4-8.2); SODIUM,NA 144.0 mEq/L (136-145)
[2024-10-31 06:14] LABS: INR 1.11
[2024-10-31] MEDS: Potassium Chloride 20 MEQ Tab.ER PO ONE (09:13)
[2024-11-01 07:41] LABS: BASOPHILS ABSOLUTE AUTO 0.0 K/mm3 (0.0-0.2); BASOPHILS PERCENT AUTO 0.5 % (0.0-1.0); EOSINOPHILS ABSOLUTE AUTO 0.2 K/mm3 (0.0-0.4); EOSINOPHILS PERCENT AUTO 2.4 % (0.0-6.0); IMMATURE GRAN ABSOLUTE AUTO 0.07 K/mm3 (0.00-0.05); IMMATURE GRAN PERCENT AUTO 0.9 % (0.0-0.4); LYMPHOCYTES ABSOLUTE AUTO 0.8 K/mm3 (1.0-4.8); LYMPHOCYTES PERCENT AUTO 10.6 % (24.0-44.0); MEAN PLATELET VOLUME 9.9 fl (9.4-12.3); MONOCYTES ABSOLUTE AUTO 0.6 K/mm3 (0.0-0.8); MONOCYTES PERCENT AUTO 7.3 % (0.0-8.0); NEUTROPHILS ABSOLUTE AUTO 6.2 K/mm3 (1.8-7.7); NEUTROPHILS PERCENT AUTO 78.3 % (41.0-71.0); NRBC ABSOLUTE 0.10 (0.00-0.02); NRBC PERCENT 1.3 % (0.0-0.2); PLATELET COUNT,PLT 215 K/mm3 (150-400); RED BLOOD CELL COUNT 2.84 M/mm3 (4.10-5.30); WHITE BLOOD CELL COUNT,WBC 7.93 K/mm3 (3.9-11.3)
[2024-11-01 08:12] LABS: BLOOD UREA NITROGEN,BUN 5.0 mg/dL (7-18); CARBON DIOXIDE,CO2 27.0 mEq/L (21-32); CHLORIDE,CL 111.0 mEq/L (98-107); CREATININE 0.6 mg/dL (0.55-1.02); EST CRCL DRUG DOSING (CG) 61.35 mL/min; ESTIMATED GFR 89.0 mL/min (>60); GLUCOSE RANDOM 133.0 mg/dL (70-99); PHOSPHORUS 2.8 mg/dL (2.6-4.7); POTASSIUM,K 3.1 mEq/L (3.5-5.1); SODIUM,NA 145.0 mEq/L (136-145)
[2024-11-01] MEDS: Potassium Chloride 20 MEQ Tab.ER PO ONE (09:34)
[2024-11-01] MEDS ORDERED: Cholestyramine/Sucrose Powder 4 GM Packet PO SCH (17:30)
[2024-11-02 05:33] LABS: BLOOD UREA NITROGEN,BUN 7.0 mg/dL (7-18); CARBON DIOXIDE,CO2 28.0 mEq/L (21-32); CHLORIDE,CL 113.0 mEq/L (98-107); CREATININE 0.6 mg/dL (0.55-1.02); EST CRCL DRUG DOSING (CG) 61.35 mL/min; ESTIMATED GFR 89.0 mL/min (>60); GLUCOSE RANDOM 130.0 mg/dL (70-99); POTASSIUM,K 3.1 mEq/L (3.5-5.1); SODIUM,NA 148.0 mEq/L (136-145)
[2024-11-02 05:47] LABS: LEAD <2.0 ug/dL (<=3.4)
[2024-11-02 05:48] LABS: MEAN PLATELET VOLUME 9.9 fl (9.4-12.3); NRBC ABSOLUTE 0.06 (0.00-0.02); NRBC PERCENT 1.0 % (0.0-0.2); PLATELET COUNT,PLT 242 K/mm3 (150-400); RED BLOOD CELL COUNT 2.82 M/mm3 (4.10-5.30); WHITE BLOOD CELL COUNT,WBC 5.97 K/mm3 (3.9-11.3)
[2024-11-02] MEDS: Potassium Chloride 20 MEQ Tab.ER PO ONE (08:13)
[2024-11-03] MEDS: Potassium Chloride 20 MEQ Tab.ER PO SCH (10:16)
== END 2024-11-03 11:00 | DRG 871 ==
LOC: JD.ED 13:06 → JD.ICU 15:02 → JD.MS 10-31 17:00 → JD.ICU 10-31 17:00
PROVIDERS: ADMIT Student in an Organized Health Care Education/Training Program; ATTEND Family Medicine
PROC: 3E03329 Introduction of Other Anti-infective into Peripheral Vein, Percutaneous Approach (ICD-10-PCS; principal; 2024-10-28)
PROC: 30233N1 Transfusion of Nonautologous Red Blood Cells into Peripheral Vein, Percutaneous Approach (ICD-10-PCS; principal; 2024-10-28)
PROC: 4A033R1 Measurement of Arterial Saturation, Peripheral, Percutaneous Approach (ICD-10-PCS; principal; 2024-10-28)
DX: A41.9 Sepsis, unspecified organism (principal); A41.59 Other Gram-negative sepsis; G93.41 Metabolic encephalopathy; J96.01 Acute respiratory failure with hypoxia; I21.A1 Myocardial infarction type 2; K57.31 Diverticulosis of large intestine without perforation or abscess with bleeding; M19.90 Unspecified osteoarthritis, unspecified site; N18.9 Chronic kidney disease, unspecified; F03.94 Unspecified dementia, unspecified severity, with anxiety; N30.00 Acute cystitis without hematuria; E87.0 Hyperosmolality and hypernatremia; E87.20 Acidosis, unspecified; F03.93 Unspecified dementia, unspecified severity, with mood disturbance; E87.3 Alkalosis; J98.11 Atelectasis; D62 Acute posthemorrhagic anemia; Z66 Do not resuscitate; E83.39 Other disorders of phosphorus metabolism; R94.31 Abnormal electrocardiogram [ECG] [EKG]; K44.9 Diaphragmatic hernia without obstruction or gangrene; R65.20 Severe sepsis without septic shock; R73.9 Hyperglycemia, unspecified; E87.6 Hypokalemia; K21.9 Gastro-esophageal reflux disease without esophagitis; J30.9 Allergic rhinitis, unspecified; H54.7 Unspecified visual loss; M19.072 Primary osteoarthritis, left ankle and foot; M19.019 Primary osteoarthritis, unspecified shoulder; Z96.659 Presence of unspecified artificial knee joint; Z85.828 Personal history of other malignant neoplasm of skin; Z98.49 Cataract extraction status, unspecified eye; Z90.49 Acquired absence of other specified parts of digestive tract; Z79.899 Other long term (current) drug therapy; Z98.890 Other specified postprocedural states; Z88.0 Allergy status to penicillin; Z96.642 Presence of left artificial hip joint; T39.395A Adverse effect of other nonsteroidal anti-inflammatory drugs [NSAID], initial encounter; Y92.89 Other specified places as the place of occurrence of the external cause
CPT/HCPCS: 36415; 36600; 70450; 71045; 74176; 80053; 81001; 82550; 82570; 82803; 83605; 83690; 83735; 83935; 84300; 84484; 84540; 85007; 85027; 85610; 85730; 86140; 86850; 86900; 86901; 86922; 87040 ×2; 87086; 87088; 87186; 87426; 93005; 96361; 96374; 96375; 99285; C1758; J0696; J1836; J7030 ×2; 36430; 80048; 80076; 80202; 82607; 82728; 82746; 82947; 83036; 83540; 83615; 83655; 83930; 84100; 84466; 85014; 85018; 85025; 85045; 93010; 94761; 97110-GP; 97162-GP; 97166-GO; 97530-GP; 97535-GO; 99221; 99231; A9270-GY; J1938; J2470; J2916; J3375; J3475; J3480; J3490; J7040; J7050; J7070; J7120; P9016